=== PATIENT | female | born 1980 | race Caucasian/White ===

== ENCOUNTER 2017-08-18 12:27 | Emergency (ER) | payer MEDICAID ==
--- NOTE | 2017-08-18 14:14 | XRAY Report ---
EXAM: CHEST RADIOGRAPHY EXAM DATE: 08/18/2017 02:00 PM. CLINICAL HISTORY: Short of breath. COMPARISON: None. TECHNIQUE: 2 views. FINDINGS: Lungs/Pleura: No focal opacities evident. No pleural effusion. No pneumothorax. Normal volumes. Mediastinum: Heart and mediastinal contours are unremarkable. Other: None. IMPRESSION: Negative chest. [facility] Referring Provider Line: [phone] SITE ID: [id number]
--- NOTE | 2017-08-18 14:32 | ED Physician Documentation ---
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 Two days ago she was exposed to xylene in an unventilated room, inhaling fumes for about 30 minutes. In addition to sore throat and difficulty breathing, she complains of nausea and dizziness. She denies headache, fever, cough, or vomiting. She denies history of similar symptoms in the past. Review of Systems Constitutional: reports: Other ("dizzy"). denies: Fever Eyes: denies: Irritation Ears: denies: Ear pain Nose: denies: Congestion Throat: reports: Sore throat Respiratory: reports: Dyspnea. denies: Cough GI: reports: Nausea. denies: Abdominal Pain, Vomiting : reports: LMP (2 wks ago). denies: Dysuria Skin: denies: Rash Neurologic: denies: Headache PD PAST MEDICAL HISTORY - Past Medical History Past Medical History: No Endocrine/Autoimmune: None - Past Surgical History Past Surgical History: No - Present Medications Home Medications: Ambulatory Orders Medication Instructions Recorded Confirmed No Known Home Medications [No 08/18/17 08/18/17 Known Home Medications] - Allergies Allergies/Adverse Reactions: Allergies Allergy/AdvReac Type Severity Reaction Status Date / Time No Known Drug Allergies Allergy Verified 08/18/17 12:47 - Social History Does the pt smoke?: No Smoking Status: Never smoker Does the pt drink ETOH?: No Does the pt have substance abuse?: No Additional Social History: Recently moved to [facility] from [place]. Works in the lab at [employer]. - Immunizations Immunizations are current?: Yes - POLST Patient has POLST: No PD ED PE NORMAL - Vitals Vital signs reviewed: Yes (normal) - General General: Alert and oriented X 3, Well developed/nourished - HEENT HEENT: Atraumatic, Moist mucous membranes, Pharynx benign - Neck Neck: Supple, no meningeal sign, No adenopathy - Cardiac Cardiac: RRR, No murmur - Respiratory Respiratory: No respiratory distress, Clear bilaterally - Abdomen Abdomen: Soft, Non tender - Back Back: No CVA TTP - Derm Derm: No rash - Extremities Extremities: No edema, No calf tenderness / cord - Neuro Neuro: Alert and oriented X 3, No motor deficit, No sensory deficit, Normal speech Results - Vitals Vitals: Oxygen O2 Source Room air PD MEDICAL DECISION MAKING - ED course Complexity details: reviewed results, re-evaluated patient, considered differential, d/w patient ED course: The patient's presentation is significant for xylene inhalation exposure, which may be the cause of her current symptoms. Viral URI could potentially cause the same symptoms. There is no evidence of pneumonia, and CXR is normal. There is no specific treatment that is clinically indicated at this time. I discussed with the patient the expected course of symptoms, as well as potentially worrisome signs or symptoms that should prompt reevaluation in the emergency department. An L&I form was completed. Departure - Departure Disposition: 01 Home, Self Care Clinical Impression: Exposure to chemical inhalation, Viral URI Instructions: ED Inhalation Chemical Comments: You can use Tylenol or ibuprofen if needed for its anti-inflammatory effect. Follow up with primary physician within 2 weeks if possible. Call to schedule appointment. Return to the emergency department if you develop increasing difficulty breathing, or otherwise worsening symptoms. Forms: Activity restrictions Discharge Date/Time: 08/18/17 14:42
[2017-08-18 14:44] VITALS: BP 99/71
== END 2017-08-18 14:42 | disposition home or self-care (01) ==
LOC: ED 12:27
DX: T52.2X1A Toxic effect of homologues of benzene, accidental (unintentional), initial encounter (principal); Y92.238 Other place in hospital as the place of occurrence of the external cause; J06.9 Acute upper respiratory infection, unspecified; B97.89 Other viral agents as the cause of diseases classified elsewhere
CPT/HCPCS: 71046; 99283